=== PATIENT | male | born 1950 | race Caucasian/White ===

== ENCOUNTER 2018-10-04 10:42 | Outpatient (CLI) | payer OTHER, BC | END 2018-10-04 20:47 | disposition home or self-care (01) | LOC: SRD 10:42 | PROVIDERS: ATTEND Family Medicine | DX: J18.9 Pneumonia, unspecified organism (principal) | CPT/HCPCS: 71046-TC ==

== ENCOUNTER 2019-11-22 08:50 | Outpatient (CLI) | payer OTHER, BC | END 2019-11-22 20:12 | disposition home or self-care (01) | LOC: SUS 08:50 | PROVIDERS: ATTEND Family Medicine | DX: N18.3 Chronic kidney disease, stage 3 (moderate) (principal); N20.0 Calculus of kidney | CPT/HCPCS: 76770 ==

== ENCOUNTER 2020-08-31 15:04 | Outpatient (CLI) | payer OTHER, MEDICARE | END 2020-08-31 19:36 | disposition home or self-care (01) | LOC: SRD 15:04 | DX: M25.531 Pain in right wrist (principal) ==